=== PATIENT | male | born 1960 | race Caucasian/White ===

== ENCOUNTER 2017-06-05 08:19 | Inpatient (IN) | payer OTHER ==
[~2017-06-05] VITALS: Ht 182.9 cm; Wt 141.5 kg
[2017-06-05 08:21] VITALS: Ht 182.9 cm; Wt 141.5 kg
[2017-06-05 08:55] LABS: PLATELET COUNT 223 x10^3mcL (130-400); RED CELL DISTRIBUTION WIDTH 13.8 % (11.5-14.5)
[2017-06-05 09:05] LABS: BASOPHIL % 0 % (0-2)
[2017-06-05 09:06] LABS: CALCIUM 8.5 mg/dL (8.5-10.1); CARBON DIOXIDE 23.8 mmol/L (21-32); CHLORIDE SERUM 101 mmol/L (98-107); GFR1 > 60 mL/min; GLUCOSE SERUM 181 mg/dL (74-106); POTASSIUM SERUM 4.2 mmol/L (3.5-5.1); SODIUM SERUM 136 mmol/L (136-145)
[2017-06-05 09:10] LABS: ALBUMIN 3.8 g/dL (3.4-5.0); ALKALINE PHOSPHATASE 128 U/L (46-116); ALT/SGPT 89 U/L (16-63); AST/SGOT 49 U/L (15-37); BILIRUBIN TOTAL 0.56 mg/dL (0.20-1.00); TOTAL PROTEIN, SERUM 7.7 g/dL (6.4-8.2)
[2017-06-05] MEDS ORDERED: GABAPENTIN100 M2 PO (10:49)
[2017-06-05] MEDS ORDERED: NEXIUM40 MG (10:49)
[2017-06-05 12:25] LABS: MAGNESIUM 1.9 mg/dL (1.8-2.4); PHOSPHOROUS 2.1 mg/dL (2.5-4.9)
[2017-06-05 12:27] LABS: CHOLESTEROL/HDL RATIO 6.2
[2017-06-05 12:33] LABS: FREE T4 1.13 ng/dL (0.76-1.46); FREE THYROXINE INDEX 3.2 ug/dL (1.4-4.5); T4(THYROXINE) 10.4 ug/dL (4.7-13.3)
[2017-06-05 12:36] VITALS: BP 106/72
[2017-06-05 12:47] LABS: T3 TOTAL 1.55 ng/mL
[2017-06-05 14:59] VITALS: BP 119/71
[2017-06-05 17:59] VITALS: BP 119/76
[2017-06-05 22:00] VITALS: BP 102/52
[2017-06-05 22:45] LABS: microscopic required? NO
[2017-06-05 23:28] LABS: UA SPECIFIC GRAVITY 1.025 (1.005-1.035); urine erythrocyte NEGATIVE (NEGATIVE)
[2017-06-06 04:53] VITALS: BP 95/59
[2017-06-06 09:26] VITALS: BP 102/63
[2017-06-06] MEDS ORDERED: ECO81 PO (10:19)
[2017-06-06] MEDS ORDERED: GLU500 PO (10:20)
[2017-06-06] MEDS ORDERED: PRI20 PO (10:20)
[2017-06-06] MEDS ORDERED: NPHOS PO (10:24)
[2017-06-06 11:46] LABS: BASOPHIL % 0.3 % (0-2); PLATELET COUNT 189 x10^3mcL (130-400); RED CELL DISTRIBUTION WIDTH 13.7 % (11.5-14.5)
[2017-06-06 11:49] LABS: ALKALINE PHOSPHATASE 103 U/L (46-116); ALT/SGPT 96 U/L (16-63); AST/SGOT 86 U/L (15-37); BILIRUBIN TOTAL 0.29 mg/dL (0.20-1.00); CALCIUM 7.6 mg/dL (8.5-10.1); CARBON DIOXIDE 23.7 mmol/L (21-32); CHLORIDE SERUM 104 mmol/L (98-107); CREATININE SERUM 0.9 mg/dL (0.7-1.3); GFR1 > 60 mL/min; GLUCOSE SERUM 143 mg/dL (74-106); SODIUM SERUM 136 mmol/L (136-145); TOTAL PROTEIN, SERUM 6.4 g/dL (6.4-8.2)
[2017-06-06 12:47] VITALS: BP 106/72
[2017-06-06 13:32] VITALS: BP 106/72
[2017-06-06] MEDS ORDERED: LEXAPRO5 M1 PO (13:50)
== END 2017-06-06 14:11 | disposition home or self-care (01) | DRG 243 ==
LOC: ED 08:19 → DU 10:47
PROVIDERS: Emergency Medicine; Family Medicine
DX: K21.9 Gastro-esophageal reflux disease without esophagitis (principal); E44.0 Moderate protein-calorie malnutrition; E11.65 Type 2 diabetes mellitus with hyperglycemia; Z68.41 Body mass index [BMI] 40.0-44.9, adult; E83.39 Other disorders of phosphorus metabolism; Z88.0 Allergy status to penicillin; E78.5 Hyperlipidemia, unspecified; E78.00 Pure hypercholesterolemia, unspecified; G89.29 Other chronic pain; M54.9 Dorsalgia, unspecified; F41.9 Anxiety disorder, unspecified; K57.30 Diverticulosis of large intestine without perforation or abscess without bleeding; E66.01 Morbid (severe) obesity due to excess calories
CPT/HCPCS: 82962; 83880; 84439; 85378; J0696; J2405; J3010; J7030; Q0092